=== PATIENT | female | born 1950 | race Native Hawaiian/Other Pacific Islander ===

== ENCOUNTER → 2017-02-06 10:26 | Outpatient (CLI) | payer OTHER | END | disposition home or self-care (01) | LOC: AMB 10:26 | DX: Z04.1 Encounter for examination and observation following transport accident (principal) ==

== ENCOUNTER 2017-06-07 15:28 | Outpatient (CLI) | payer OTHER ==
[2017-06-07 16:22] LABS: PLATELET COUNT 305 K/uL (152-353)
== END 2017-06-07 22:14 | disposition home or self-care (01) ==
LOC: LAB 15:28
PROVIDERS: Nurse Practitioner Family
DX: N32.81 Overactive bladder (principal); E55.9 Vitamin D deficiency, unspecified; R53.82 Chronic fatigue, unspecified; R53.81 Other malaise; E78.00 Pure hypercholesterolemia, unspecified; R79.89 Other specified abnormal findings of blood chemistry
CPT/HCPCS: 80053; 80061; 82306; 83036; 84436; 84443; 85027; 86039; 86431

== ENCOUNTER 2017-06-22 14:24 | Outpatient (CLI) | payer OTHER | END 2017-06-22 15:30 | disposition home or self-care (01) | LOC: LAB 14:24 | DX: Z01.419 Encounter for gynecological examination (general) (routine) without abnormal findings (principal) ==

== ENCOUNTER 2017-07-07 12:49 | Outpatient (CLI) | payer OTHER | END 2017-07-07 23:01 | disposition home or self-care (01) | LOC: MAMMO 12:49 | DX: Z12.31 Encounter for screening mammogram for malignant neoplasm of breast (principal); Z13.820 Encounter for screening for osteoporosis; M81.8 Other osteoporosis without current pathological fracture ==

== ENCOUNTER 2020-03-31 15:50 | Emergency (ER) | payer OTHER ==
[~2020-03-31] VITALS: Ht 157.5 cm; Wt 53.5 kg
[2020-03-31 19:00] VITALS: BP 160/63; TEMP 98.2
== END 2020-03-31 19:00 | disposition home or self-care (01) ==
LOC: ED 15:50
DX: S00.83XA Contusion of other part of head, initial encounter (principal); S60.222A Contusion of left hand, initial encounter; S80.01XA Contusion of right knee, initial encounter; S90.32XA Contusion of left foot, initial encounter; W01.0XXA Fall on same level from slipping, tripping and stumbling without subsequent striking against object, initial encounter; Y92.480 Sidewalk as the place of occurrence of the external cause
CPT/HCPCS: 99283

== ENCOUNTER 2021-07-21 08:52 | Outpatient (CLI) | payer OTHER | END 2021-07-21 19:08 | disposition home or self-care (01) | LOC: MAMMO 08:52 | PROVIDERS: ATTEND Internal Medicine | DX: Z13.820 Encounter for screening for osteoporosis (principal); Z12.31 Encounter for screening mammogram for malignant neoplasm of breast; N95.8 Other specified menopausal and perimenopausal disorders ==